=== PATIENT | male | born 1965 | race Caucasian/White ===

== ENCOUNTER 2025-05-11 17:22 | Emergency (ER) | payer MEDICARE, OTHER ==
[~2025-05-11] VITALS: Ht 182.9 cm; Wt 90.7 kg
[~2025-05-11 17:22] MED LIST: CEPH500B PO; PANT40TA55 PO
--- NOTE | 2025-05-11 17:40 | ERN ---
General Chief Complaint: Abdominal Pain Stated Complaint: ABD PAIN Time Seen by MD: 17:25 Time Seen by Midlevel: 17:25 Source: patient History of Present Illness Initial Comments Patient is a 60-year-old male presenting to the emergency department with black tarry stools that has been ongoing for three weeks. The patient has a colostomy in place that was placed approximately five years ago. He is a paraplegic. Denies any other symptoms. Allergies: Coded Allergies: Sulfa (Sulfonamide Antibiotics) (Unverified Allergy, Unknown, 04/04/24) clindamycin (Unverified Allergy, Unknown, 04/04/24) sulfamethoxazole (Unverified Allergy, Unknown, 04/04/24) trimethoprim (Unverified Allergy, Unknown, 04/04/24) Home Meds Active Scripts Pantoprazole Sodium (Protonix) 40 Mg Ectab, 40 MG PO DAILY for 30 Days, #30 TAB.EC Prov:CHANTEL NOEL MD 04/04/24 Cephalexin Monohydrate (Keflex) 500 Mg Cap, 500 MG PO TID for 7 Days, #21 CAP Prov:CHANTEL NOEL MD 04/04/24 Past Medical History Past Medical History: Other Medical History Other: GASTRIC ULCER, GASTRIC POLYPS, T3 PARALYSIS Past Surgical History: Other Surgical History Other: T3 PARALYSIS ROS Dictation CONSTITUTIONAL: Negative except for HPI HEAD/FACE: Negative except for HPI EENT: Negative except for HPI RESPIRATORY: Negative except for HPI GASTROINTESTINAL/ABDOMINAL: Negative except for HPI GENITOURINARY: Negative except for HPI MUSCULOSKELETAL: Negative except for HPI INTEGUMENTARY: Negative except for HPI NEUROLOGICAL/PSYCH: Negative except for HPI HEMATOLOGIC/LYMPHATIC: Negative except for HPI All Systems Negative, Except as noted above. 13 point review of systems assessed and all negative except for above. Physical Exam Physical Exam Dictation Vital Signs reviewed General Appearance: Alert, oriented x 3, no acute distress, well developed, nourished. Head and Face: non-traumatic. Eyes: PERRL, pink conjunctivas, eyelid no trauma, anterior chamber with arcus senilis. Ears: Pinnas intact and no signs of trauma or erythema ear canals clear and no discharge TM no erythema Nose: No discharge, no bleeding. Oropharynx: Mouth normal, tongue pink, pharynx clear,no erythema, tonsils no exudates, no abscesses noted, mucous membrane moist Neck: Supple, non-tender, no thyromegaly, no masses, no JVD, no bruits Breast:Deferred Chest:No tenderness, no crepitus, no paradoxical movement, no retractions Lungs:Clear, well-ventilated, symmetric, no rales, no wheezing, no rhonchi, no stridor, good breath sounds bilaterally Heart: Regular rate, regular rhythm, no murmur, no gallops Vascular: no peripheral edema, Abdomen: Soft, positive bowel sounds, nondistended, no guarding, nontender, no rebound, no masses no hepatomegaly, no splenomegaly, no Chou's sign, no hernias. Rectal: Deferred Genital: Deferred Neurological: Normal speech, motor function intact, sensory function intact Musculoskeletal: Neck nontender, full range of motion, back nontender, full range of motion, Extremities: nontender, full range of motion Skin: Color pink, dry, no turgor, no rash, no lacerations, no abrasions, no contusions. Lymphatic: Deferred Results Laboratory and Microbiology Lab and Micro Result Laboratory Tests Test 05/11/25 18:09 05/11/25 22:00 White Blood Count 6.9 K/uL (4.8-10.8) Red Blood Count 4.82 MIL/uL (4.50-6.20) Hemoglobin 12.0 g/dL (14.0-18.0) L Hematocrit 38.5 % (42-54) L Mean Corpuscular Volume 79.9 fL (79-99) Mean Corpuscular Hemoglobin 24.9 pg (27.0-33.0) L Mean Corpuscular Hemoglobin Concent 31.2 g/dL (32.0-36.0) L Red Cell Distribution Width 15.1 % (11.0-15.5) Platelet Count 350 K/uL (130-400) Mean Platelet Volume 10.3 fL (7.5-10.5) Immature Granulocyte % (Auto) 0.3 % (0-1) Neutrophils (%) (Auto) 57.2 % (40.0-77.0) Lymphocytes (%) (Auto) 30.9 % (21.0-51.0) Monocytes (%) (Auto) 8.4 % (3.0-13.0) Eosinophils (%) (Auto) 2.6 % (0.0-8.0) Basophils (%) (Auto) 0.6 % (0.0-5.0) Neutrophils # (Auto) 3.9 K/uL (1.8-7.7) Lymphocytes # (Auto) 2.1 K/uL (1.0-4.8) Monocytes # (Auto) 0.6 K/uL (0.1-1.0) Eosinophils # (Auto) 0.18 K/uL (0.00-0.70) Basophils # (Auto) 0.04 K/uL (0.00-0.20) Absolute Immature Granulocyte (auto 0.02 K/uL (0-1) Nucleated Red Blood Cells 0.0 % (0.0-0.19) Red Blood Cell Morphology See comments Prothrombin Time 10.5 SEC (9.6-11.6) Prothromb Time International Ratio 0.99 (0.85-1.15) Activated Partial Thromboplast Time 31.1 SEC (26.3-35.5) Sodium Level 134 mmol/L (136-145) L Potassium Level 4.3 mmol/L (3.5-5.1) Chloride Level 98 mmol/L (101-111) L Carbon Dioxide Level 33 mmol/L (21-32) H Blood Urea Nitrogen 8 mg/dL (7-18) Creatinine 0.6 mg/dL (0.5-1.3) Glomerular Filtration Rate Calc 111 mL/min (>90) Random Glucose 100 mg/dL (70-105) Total Calcium 9.5 mg/dL (8.5-10.1) Total Bilirubin 0.4 mg/dL (0.2-1.0) Aspartate Amino Transf (AST/SGOT) 19 U/L (10-37) Alanine Aminotransferase (ALT/SGPT) 23 U/L (12-78) Alkaline Phosphatase 97 U/L (50-136) Total Protein 7.8 g/dL (6.0-8.3) Albumin 3.7 g/dL (3.5-5.0) Stool Occult Blood NEGATIVE (NEGATIVE) Labs Reviewed?: Yes MDM MDM: Differential diagnosis: Upper GI bleed, lower GI bleed, severe anemia There are no social concerns with this patient. Prescription drug management Prescriptions will include: None Medical management and examination interpretation discussions were had by me with other qualified healthcare professionals as indicated for the patient's care. ED Course Orders Procedure Category Date Status Time Cbc With Differential LAB 05/11/25 Complete 17:31 Comprehensive LAB 05/11/25 Complete Metabolic Panel 17:31 Pt And Ptt LAB 05/11/25 Complete 17:31 Type And Screen BBK 05/11/25 Complete 17:31 Occult Blood Stool LAB 05/11/25 Complete Single Only 17:31 Ct Abdomen/Pelvis CT 05/11/25 Resulted W/Contrast 17:31 Iohexol (Omnipaque) PHA 05/11/25 Complete 19:35 Morphine 2mg Syg PHA 05/11/25 Complete (Morphine 2mg Syg) 21:30 Ondansetron 4mg Inj PHA 05/11/25 Complete (Zofran 4mg Inj) 21:30 Morphine 2mg Syg PHA 05/11/25 In Process (Morphine 2mg Syg) 22:30 Current Medications Medications (Trade) Dose Ordered Sig/Nirali Route PRN Reason Start Time Stop Time Status Last Admin Dose Admin Iohexol (Omnipaque) 75 ml STK-MED ONCE IV 05/11/25 19:35 05/11/25 19:35 DC Morphine Sulfate (morPHINE 2MG SYG) 2 mg ONCE ONCE IVP 05/11/25 21:30 05/11/25 21:31 DC 05/11/25 21:13 Morphine Sulfate (morPHINE 2MG SYG) 2 mg ONCE ONCE IVP 05/11/25 22:30 05/11/25 22:31 05/11/25 22:11 Ondansetron HCl (zoFRAN 4MG INJ) 4 mg ONCE ONCE IVP 05/11/25 21:30 05/11/25 21:31 DC 05/11/25 21:13 Vital Signs Date Time Temp Pulse Resp B/P (MAP) Pulse Ox O2 Delivery O2 Flow Rate FiO2 05/11/25 19:32 98.1 85 18 152/66 99 Room Air* 0 21 05/11/25 17:23 98.4 87 18 133/82 97 DX & DISP Disposition: Discharge Departure Impression: Primary Impression: Stool color black Condition: Stable Additional Instructions: Your blood work today is stable. Your hemoglobin (amount of blood circulating your body) is stable. Your kidney function is normal. Your stool test was negative for blood. Avoid iron supplementations, Pepto-Bismol, or food/medications known to dark in stool until you were re-evaluated by your primary care doctor or GI specialist. Keep a record of your colostomy output. Schedule follow up with your GI specialist and primary care doctor in 1-2 days for repeat evaluation. Return to the ER if you develop dizziness, fainting, or stool turns bright red. Referrals: CAT WRIGHT MD (PCP) Time of Disposition: 22:15 I have reviewed the case, and I agree with, Diagnosis and Plan I performed the substantive portion of the visit. I have reviewed and personally made and approve the management plan that is documented in the note by myself or the RL. I acknowledge for responsibility for the patient's management plan. RAULITO MCGREGOR May 11, 2025 17:39
[2025-05-11 18:15] LABS: IMMATURE GRANULOCYTE ABSOLUTE 0.02 K/uL (0-1); NUCLEATED RED BLOOD CELLS 0.0 % (0.0-0.19); PLATELET COUNT (AUTO) 350 K/uL (130-400); RED BLOOD CELL COUNT(AUTO) 4.82 MIL/uL (4.50-6.20); RED CELL DISTRIBUTION WIDTH 15.1 % (11.0-15.5); WHITE BLOOD COUNT (AUTO) 6.9 K/uL (4.8-10.8)
[2025-05-11 18:28] LABS: CREATININE 0.6 mg/dL (0.5-1.3); GLOMERULAR FILTR. RATE CALC 111.0 mL/min (>90); GLUCOSE,RANDOM 100.0 mg/dL (70-105); SODIUM SERUM 134.0 mmol/L (136-145); UREA NITROGEN, BLOOD 8.0 mg/dL (7-18)
[2025-05-11 18:40] LABS: ASPARTATE AMINOTRANSFERASE 19.0 U/L (10-37); TOTAL PROTEIN, SERUM 7.8 g/dL (6.0-8.3)
[2025-05-11 19:02] LABS: INR 0.99 (0.85-1.15)
--- NOTE | 2025-05-11 19:15 | NUR ---
ASSUMED PT CARE
[2025-05-11] MEDS ORDERED: IOHEXOL-350 75 ML VIAL IV ONE (19:35)
--- NOTE | 2025-05-11 21:40 | HMCIMG ---
EXAMINATION: CT Abdomen and Pelvis with IV contrast. CLINICAL HISTORY: Patient presents with gastrointestinal bleeding and diffuse abdominal pain. COMPARISON: None provided. TECHNIQUE: Axial computed tomography images of the abdomen and pelvis with intravenous contrast. FINDINGS: LUNG BASES: The lung bases appear clear. No pleural effusions are seen. Bilateral gynecomastia, incompletely imaged. LIVER: Unremarkable. GALLBLADDER AND BILE DUCTS: The gallbladder is surgically absent. No biliary ductal dilatation. PANCREAS: Unremarkable. SPLEEN: Unremarkable. ADRENAL GLANDS: Unremarkable. KIDNEYS, URETERS, AND BLADDER: The kidneys appear within normal limits. No hydronephrosis or hydroureter. No urinary calculi. The urinary bladder is empty with a suprapubic cystostomy catheter in place, limiting evaluation for possible wall thickening. In the appropriate clinical setting, mild cystitis cannot be excluded. STOMACH AND BOWEL: Colostomy in the left lower quadrant with parastomal hernia containing omental fat, mesenteric vasculature, and colonic bowel loops. Divarication of recti with umbilical hernia containing omental fat and ileal bowel loops. Postsurgical status of the sigmoid colon. No bowel obstruction. APPENDIX: No evidence of acute appendicitis on CT examination. PERITONEUM: No free fluid. No free air. LYMPH NODES: No lymphadenopathy is evident. REPRODUCTIVE: Prostatic calcifications. VASCULATURE: No evidence of abdominal aortic aneurysm. BONES: Chronic wedge compression deformity of the T12 vertebra with bone cement. Multilevel mild degenerative changes in the spine. Undisplaced non-united fracture of the left femoral neck with posterior dislocation of the femoral neck and shaft relative to the acetabulum. Extensive resorption of the left femoral head with ankylosis of the left femoral head and acetabulum. Degenerative changes in the right hip joint with mild right hip joint effusion and synovial thickening. 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 Umbilical hernia with divarication of recti and herniation of omental fat and ileal bowel loops. Postsurgical status of the sigmoid colon. Undisplaced non-united fracture of the left femoral neck with posterior dislocation and ankylosis of the left femoral head and acetabulum. Degenerative changes in the right hip joint with mild effusion and synovial thickening. Chronic wedge compression deformity of the T12 vertebra with bone cement. Suprapubic cystostomy catheter in place with an empty urinary bladder, limiting evaluation; mild cystitis cannot be excluded. Recommend clinical correlation. Prostatic calcifications. /[place]
[2025-05-11 22:17] VITALS: BP 147/68; PULSE 82; RESP 18; TEMP 98.1; O2SAT 97
== END 2025-05-11 23:21 | disposition home or self-care (01) ==
LOC: EDH 17:22
DX: K92.1 Melena (principal); Z79.899 Other long term (current) drug therapy; Z88.1 Allergy status to other antibiotic agents; Z88.2 Allergy status to sulfonamides; Z93.3 Colostomy status
CPT/HCPCS: 99285; 74177; 96374; 96375; 82270; 80053; 85025; 85610; 85730; 86850; 86900; 86901; 36415; 96376; J2270 ×2; J2405; Q9967; J1171